=== PATIENT | male | born 1950 | race Caucasian/White ===

== ENCOUNTER 2017-05-25 07:29 | Day surgery (SDC) | payer MEDICARE, BC ==
[~2017-05-25 07:29] MED LIST: Dextrose 5%-0.45% NaCl 1,000 ML IV SCH; Midazolam 1 MG/ML 2 ML SDV IV ONE; Midazolam 1 MG/ML 2 ML SDV ONE; Sodium Chloride 0.9% 10 ML Syringe FLUSH PRN; fentaNYL 100 MCG/2 ML SDV IV ONE; fentaNYL 100 MCG/2 ML SDV ONE
[2017-05-25] MEDS ORDERED: fentaNYL 100 MCG/2 ML SDV IV ONE ×2 (08:26)
[2017-05-25] MEDS ORDERED: Midazolam 1 MG/ML 2 ML SDV IV ONE ×2 (08:27)
--- NOTE | 2017-05-25 09:14 | OR ---
DATE: 05/25/2017 PROCEDURE: Esophagogastroduodenoscopy and multiple pinch biopsies. INSTRUMENT USED: GIF-H180 Olympus video panendoscope. PREMEDICATIONS: No oral topical anesthesia used. Fentanyl 100 mcg intravenous, Versed 2 mg intravenous. Nasal O2 cannula. The procedure was done under pulse oximetry, BP recording, and threat monitoring analyst. INDICATION: The patient with long-standing heartburn, and recent high dysphagia unexplained, on long-term PPI. Esophagogastroduodenoscopy is performed for detection of any active erosive lesions, [place] esophagus and/or malignancy also under consideration, H. pylori status to be determined, esophageal dilatations if indicated, endoscopic hemostasis therapy if needed. DESCRIPTION OF PROCEDURE: The scope was passed with ease. Adequate visualization of the esophagus was made from proximal to distal areas. No upper esophageal lesions identified. No distal esophageal stricture. No uphill or downhill esophageal varices. No Nida-Blel tear. No evidence of erosive esophagitis by [place] criteria. No esophageal polyp or tumor mass identified. Z-line was seen at around 40 cm distal to the oral verge, configuration consistent with grade 1 by ZAP classification. No esophageal polyp or tumor mass identified. No proximal gastric varices noted. Gastric fundus examination by retroflexion showed no malignant lesions. No gastric ulcer, malignant mass, or vascular ectasia identified. Duodenal bulb showed no ulcer. Visualized second part of the duodenum was unremarkable. Multiple pinch biopsies were taken from the gastric antrum and proximal body and sent for PyloriTek test for H. pylori, and if negative in an hour, tissue is to be sent for histopathology. No bleeding was noted from any of the visualized areas at the completion of examination. IMPRESSION: Normal study. The patient tolerated the procedure well. [facility] /[id number]
[2017-05-25 10:33] VITALS: BP 141/72
== END 2017-05-25 10:40 | disposition home or self-care (01) ==
LOC: DL.ENDO 07:29
PROVIDERS: ATTEND Internal Medicine Gastroenterology
DX: K29.50 Unspecified chronic gastritis without bleeding (principal); K60.2 Anal fissure, unspecified; Z80.0 Family history of malignant neoplasm of digestive organs; K80.20 Calculus of gallbladder without cholecystitis without obstruction; N20.0 Calculus of kidney; E11.9 Type 2 diabetes mellitus without complications; I10 Essential (primary) hypertension; E66.09 Other obesity due to excess calories; K21.9 Gastro-esophageal reflux disease without esophagitis
CPT/HCPCS: 43239; 87077; J2250; J3010; J7042; 88305

== ENCOUNTER 2017-09-19 16:57 | Emergency (ER) | payer OTHER, MEDICARE, BC ==
[2017-09-19 17:25] VITALS: BP 156/73
[2017-09-19] MEDS ORDERED: Tetracaine HCl/PF 0.5% 4 ML Bottle EYEBOTH ONE (17:43)
[2017-09-19] MEDS ORDERED: Fluorescein 1 MG Ophth Strip EYEBOTH ONE (17:43)
--- NOTE | 2017-09-19 17:45 | EDM.PDOC ---
ED HPI GENERAL MEDICAL PROBLEM - General Chief Complaint: Eye Problems Stated Complaint: WORKERS COMP / SAND IN EYES Time Seen by Provider: 09/19/17 17:42 Source of Information: Reports: Patient History Limitations: Reports: No Limitations - History of Present Illness INITIAL COMMENTS - FREE TEXT/NARRATIVE: 67 yo male c/o sand in eyes bilat this 8:30 AM Onset: Today Onset Date: 09/19/17 Duration: Hour(s): Location: Reports: Face Quality: Reports: Burning Severity: Moderate Improves with: Reports: None Worsens with: Reports: None Context: Reports: Other (sand blown into eyes) Associated Symptoms: Reports: No Other Symptoms Bilateral Eye Pain Score (Numeric/FACES): 7 - Related Data Allergies Allergy/AdvReac Type Severity Reaction Status Date / Time No Known Allergies Allergy Verified 09/19/17 17:29 Home Meds: Home Meds Aspirin [Adult Low Dose Aspirin EC] 81 mg PO DAILY 02/08/15 [History] Multivitamin with Minerals [Multiple Vitamin] 1 tab PO DAILY 02/08/15 [History] Omeprazole 20 mg PO DAILY 02/08/15 [History] [place]-3/DHA/Epa/Fish Oil [[place]-3 Fish Oil 1,200 MG Sfgl] 1,200 mg PO TID [History] Albuterol Sulfate [Proair Hfa] 2 puff INH QID PRN 02/02/16 [History] Cyanocobalamin (Vitamin B-12) [B-12] 1,000 mcg PO BID 02/02/16 [History] DULoxetine HCl [Cymbalta] 30 mg PO BEDTIME 02/02/16 [History] Ibuprofen [Advil] 800 mg PO BID PRN 02/02/16 [History] Losartan [Cozaar] 100 mg PO DAILY 02/02/16 [History] Nitroglycerin [Nitrostat] 0.4 mg PO ASDIRECTED 02/02/16 [History] Propranolol [Inderal LA] 60 mg PO BID 02/02/16 [History] Simvastatin [Zocor] 20 mg PO BEDTIME 02/02/16 [History] glipiZIDE [Glipizide] 5 mg PO BIDAC 02/02/16 [History] metFORMIN [Glucophage] 1,000 mg PO BID 02/02/16 [History] Dibucaine [Nupercainal 1% Oint] 1 applic RECTAL QID MDD RECTAL PAIN 05/23/17 [ History] Docusate Sodium 1 cap PO BID PRN 05/23/17 [History] Gabapentin [Neurontin] 1 cap PO TID 05/23/17 [History] Melatonin Er 8 Mg 1 tab PO BEDTIME PRN 05/23/17 [History] Past Medical History HEENT History: Reports: Cataract, Hard of Hearing Cardiovascular History: Reports: High Cholesterol, Hypertension, [place], Stents Other Cardiovascular History: angioplasy Respiratory History: Reports: Bronchitis, Recurrent, Pneumonia, Recurrent, SOB Gastrointestinal History: Reports: Cholelithiasis, GERD, Other (See Below) Other Gastrointestinal History: HX OF ANAL FISSURE. HIGH RISK FAMILY HX OF COLON CA Genitourinary History: Reports: Acute Renal Failure, Other (See Below) Other Genitourinary History: ?BPH. HX OF NEPHROLITHIASIS Musculoskeletal History: Reports: Fibromyalgia, Other (See Below) Other Musculoskeletal History: SPINAL STENOSIS OF CERVICAL REGION. DEGENERATIVE DISC DISEASE. RADICULOPATHY OF CERVICAL SPINE Neurological History: Reports: Headaches, Chronic Psychiatric History: Reports: Anxiety, Depression Endocrine/Metabolic History: Reports: Diabetes, Type II, Obesity/BMI 30+ Hematologic History: Reports: Anemia, B12 Deficiency Immunologic History: Reports: None Oncologic (Cancer) History: Reports: None Dermatologic History: Reports: None - Infectious Disease History Infectious Disease History: Reports: Chicken Pox, Measles, Mumps - Past Surgical History Head Surgeries/Procedures: Reports: None HEENT Surgical History: Reports: Naso-Sinus Surgery Cardiovascular Surgical History: Reports: Coronary Artery Stent Respiratory Surgical History: Reports: None GI Surgical History: Reports: Colonoscopy, Colostomy, EGD, Hernia, Inguinal, Hernia Repair/Other Male Surgical History: Reports: None Endocrine Surgical History: Reports: None Neurological Surgical History: Reports: None Musculoskeletal Surgical History: Reports: Arthroscopic Knee, Carpal Tunnel, Other (See Below) Other Musculoskeletal Surgeries/Procedures:: jonny , 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 Dermatological Surgical History: Reports: None Social & Family History - Family History HEENT: Reports: Cataract Cardiac: Reports: Heart Failure Endocrine/Metabolic: Reports: Diabetes, type II Oncologic: Reports: Bladder, Lung, Renal - Tobacco Use Smoking Status *Q: Former Smoker Used Tobacco, but Quit: No - Caffeine Use Caffeine Use: Reports: Soda - Recreational Drug Use Recreational Drug Use: No ED ROS GENERAL - Review of Systems Review Of Systems: See Below Constitutional: Reports: No Symptoms HEENT: Reports: Eye Pain Respiratory: Reports: No Symptoms Cardiovascular: Reports: No Symptoms Endocrine: Reports: No Symptoms GI/Abdominal: Reports: No Symptoms : Reports: No Symptoms Musculoskeletal: Reports: No Symptoms Skin: Reports: No Symptoms Neurological: Reports: No Symptoms Psychiatric: Reports: No Symptoms Hematologic/Lymphatic: Reports: No Symptoms Immunologic: Reports: No Symptoms ED EXAM GENERAL W FULL EYE - Physical Exam Exam: See Below Exam Limited By: No Limitations General Appearance: Alert, No Apparent Distress Eye Exam: Bilateral Eye: Corneal Abrasion (left @ 12o'clock and right 3o'clock) , PERRL Eyelids: Bilateral: Normal Appearance Cornea Exam: Bilateral: Corneal Abrasion (left 12o'clock and right 3o'clock), Examined with Flourescein Extraocular Movements: Bilateral: Intact Pupils: Normal Accommodation Pupillary Size: Bilateral: 4 mm Pupillary Reaction: Bilateral: Brisk Anterior Chamber: Bilateral: Normal Appearance Posterior Chamber: Bilateral: Normal Funduscopic Ears: Normal External Exam Nose: Normal Inspection Throat/Mouth: Normal Inspection Head: Atraumatic Neck: Normal Inspection Respiratory/Chest: No Respiratory Distress Cardiovascular: Normal Peripheral Pulses GI/Abdominal: Normal Bowel Sounds Neurological: Alert, Oriented, CN II-XII Intact Psychiatric: Normal Affect Skin Exam: Warm, Dry ED EYE w/ Add Procedure - Eye Procedure Alcaine Drops Administered: Yes (bilat. eyes) Eye Irrigated w/ Saline (ccs): 10 (bilat. eyes) Antibiotic Oinment/Drps Admin: Both Eyes Course - Vital Signs Last Recorded V/S: Last Vital Signs Temp 36.4 C 09/19/17 17:24 Pulse 59 L 09/19/17 17:24 Resp 20 09/19/17 17:24 BP 156/73 H 09/19/17 17:24 Pulse Ox 97 09/19/17 17:24 - Orders/Labs/Meds Meds: Medications Discontinued Medications Generic Name Dose Route Start Last Admin Trade Name Freq PRN Reason Stop Dose Admin Balanced Salt Solution 10 ml 09/19/17 17:48 09/19/17 17:50 Eye Stream Eye Rinse EYEBOTH 09/19/17 17:49 10 ml ONETIME ONE Administration Balanced Salt Solution Confirm 09/19/17 17:49 Eye Stream Eye Rinse Administered 09/19/17 17:50 Dose 30 ml .ROUTE .STK-MED ONE Fluorescein Sodium 1 mg 09/19/17 17:43 09/19/17 17:50 Ful-Jinny EYEBOTH 09/19/17 17:44 1 mg ONETIME ONE Administration Tetracaine HCl 2 ml 09/19/17 17:43 09/19/17 17:47 Tetracaine 0.5% Steri-Unit Anneliese EYEBOTH 09/19/17 17:44 2 ml ASDIRECTED ONE Administration Departure - Departure Time of Disposition: 18:05 Disposition: Home, Self-Care 01 Condition: Good Clinical Impression: Corneal abrasion Qualifiers: Encounter type: initial encounter Laterality: unspecified laterality Qualified Code(s): S05.00XA - Injury of conjunctiva and corneal abrasion without foreign body, unspecified eye, initial encounter Eye foreign body Qualifiers: Encounter type: initial encounter Laterality: unspecified laterality Qualified Code(s): T15.90XA - Foreign body on external eye, part unspecified, unspecified eye, initial encounter - Discharge Information Instructions: Eye Foreign Body, [id number] Forms: ED Department Discharge Additional Instructions: wear eye protection Use GARAMYCIN OPTHAL SOLN. 2 DROPS EACH EYE QID F/U w/ PCP
[2017-09-19] MEDS ORDERED: Balanced Salt Solution Ophth Irrig 30 ML Bottle EYEBOTH ONE (17:48)
[2017-09-19] MEDS ORDERED: Balanced Salt Solution Ophth Irrig 30 ML Bottle ONE (17:49)
== END 2017-09-19 18:15 | disposition home or self-care (01) ==
LOC: DL.ED 16:57
DX: T15.02XA Foreign body in cornea, left eye, initial encounter (principal); T15.01XA Foreign body in cornea, right eye, initial encounter; I10 Essential (primary) hypertension; E78.00 Pure hypercholesterolemia, unspecified; K21.9 Gastro-esophageal reflux disease without esophagitis; F32.9 Major depressive disorder, single episode, unspecified; E11.9 Type 2 diabetes mellitus without complications; Z87.891 Personal history of nicotine dependence; Z79.82 Long term (current) use of aspirin; Z79.84 Long term (current) use of oral hypoglycemic drugs; Z79.899 Other long term (current) drug therapy; X58.XXXA Exposure to other specified factors, initial encounter
CPT/HCPCS: 99283; A9270

== ENCOUNTER 2017-10-31 12:24 | Observation (INO) | payer OTHER, MEDICARE, BC ==
[2017-10-31] MEDS ORDERED: HYDROmorphone 1 MG/ML Syringe IVPUSH ONE (12:52)
[2017-10-31] MEDS ORDERED: Ondansetron 4 MG/2 ML SDV ONE (12:57)
[2017-10-31] MEDS ORDERED: Ondansetron 4 MG/2 ML SDV IV ONE ×2 (12:58→14:45)
[2017-10-31] MEDS ORDERED: Iopamidol 612 MG/ML 100 ML Bottle IVPUSH ONE (13:09)
--- NOTE | 2017-10-31 13:32 | CT ---
Clinical history: 67-year-old male injured in a fall. Scan technique: Volume acquisition of data emergency unenhanced CT scan of the head and brain obtaine d with patient lying supine on the Siemens multi slice scanner [facility]. All data archived in the PACS system for storage and study (bone/brain windows). Interpretation: 1. Uniformly thick bony calvarium without sign of skull fracture, underlying brain contusion or epidu ral/subdural hematoma. 2. Symmetric clear pneumatization of the paranasal and mastoid sinuses (no basal skull fracture). 3. Symmetric street-white matter pattern and there appear to be tiny lacunar infarcts, respectively, ge nu of the internal capsule basal ganglia on the left and posteriorly internal capsule basal ganglia o n the right. No other signs of microvascular ischemic change. 4. No supratentorial or posterior fossa mass lesion. Midline pineal and symmetric choroid plexus calc ifications. 5. No sign of acute intracerebral/intraventricular/subarachnoid bleed. 6. Minimal age-appropriate atrophy. No hydrocephalus. CONCLUSION: Age-appropriate atrophy and microvascular ischemic changes. No sign of skull fracture or closed head injury.
--- NOTE | 2017-10-31 13:36 | CT ---
Clinical history: 67-year-old male injured in a fall. TECHNIQUE: Volume acquisition of data emergency unenhanced CT scan of the cervical spine obtained wit h patient lying supine on the Siemens multislice scanner [facility]. All data archived in the PACS system for storage, reformatting axial/sagittal/coronal planes and study. Interpretation: Chronic severe arthritic reactive changes atlantoaxial joint. Normal TMJs. No basal s kull fracture. Abnormal intervertebral disc space narrowing C5-6 level with associated hypertrophic marginal and unc inate spur formation (similar marginal spondylosis anteriorly C4 vertebral body). No sign of prevertebral soft tissue swelling, cervical fracture, spondylolisthesis or jumped locked f acets. (Dense calcification ligamentum nuchae posteriorly). Lung apices clear. No fractures medial ends of the clavicles. 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 No cervical fracture.
[2017-10-31 13:42] LABS: ANION GAP 13.4; CHLORIDE,CL 97 mmol/L (101-111); SODIUM,NA 132 mmol/L (135-145)
--- NOTE | 2017-10-31 14:17 | CT ---
CLINICAL HISTORY: 67-year-old hypertensive 200 pound diabetic male injured in fall (pain ribs on the right). SCAN TECHNIQUE: Volume acquisition of data from an emergency CT scan of the chest, abdomen and pelvis obtained without oral contrast but during/after the intravenous administration 100 cc nonionic Isovu e contrast (3 cc/s via injector) while the patient was lying supine on the Siemens multi slice scanne [place], [place]. All data archived in the PACS system for storage, reformatting. INTERPRETATION: 1. Signs of multilevel disc disease lower thoracic and mid/lower lumbar spine with hypertrophic luis m nal spondylosis. No sign of fracture or spondylolisthesis. No pathologic skeletal lesions. 2. Nondisplaced fractures of the posterior lateral eighth (8) and ninth (9) ribs, on the right. No si gn of pleural hematoma or underlying lung contusion. No atelectasis or dependent pleural effusion. No pneumothorax on the right. 3. Normal caliber thoracic and abdominal aorta. No traumatic dissection. Cardiac silhouette. No peric ardial effusion. 4. Solitary tiny dependent intraluminal gallstone. No abnormal dilatation of intra or extra hepatic b iliary ducts. 5. Single 3 cm diameter upper pole cortical cyst left kidney. No other renal cortical mass lesion. So litary stone lower pole calyx right kidney. No other evidence of nephrolithiasis or obstructive uropa thy. 6. No fractures of the pelvis or either hip. No abdominal visceral rupture or laceration. No ascites or free intraperitoneal air. No inflammatory "dirty" peritoneal fat, sign of mechanical bowel obstruc tion or mesenteric/retroperitoneal lymphadenopathy. 7. Liver, stomach, spleen, pancreas and adrenal glands unremarkable. CONCLUSION: Nondisplaced fractures right eighth and ninth ribs. Multilevel disc disease and chronic a rthritic changes of the spine. Simple cyst upper pole left kidney. Cholelithiasis.
[2017-10-31] MEDS ORDERED: Sodium Polystyrene Sulfonate 15 GM/60 ML Susp 60 ML Bot PO ONE (14:31)
[2017-10-31] MEDS ORDERED: Morphine 2 MG/ML Syringe IVPUSH ONE (14:44)
--- NOTE | 2017-10-31 15:52 | EDM.PDOC ---
ED HPI GENERAL MEDICAL PROBLEM - General Chief Complaint: Back Pain or Injury Stated Complaint: SLIPPED ON ICE, HIT HEAD AND BACK Time Seen by Provider: 10/31/17 12:45 Source of Information: Reports: Patient, Family History Limitations: Reports: No Limitations - History of Present Illness INITIAL COMMENTS - FREE TEXT/NARRATIVE: Patient presents to the ER with c/o slipping on the ice. He states he landed on his back and hit his head. He is unsure if he lost consciousness. He c/o right sided rib pain rating it a 10/10. He states he has a headache and a lump on the back of his head as well. Onset: Today, Sudden Location: Reports: Head, Chest, Abdomen Severity: Severe Improves with: Reports: None Worsens with: Reports: None Associated Symptoms: Reports: No Other Symptoms Right Posterior Chest Pain Score (Numeric/FACES): 10 Right Thoracic Pain Score (Numeric/FACES): 4 - Related Data Allergies Allergy/AdvReac Type Severity Reaction Status Date / Time No Known Allergies Allergy Verified 10/31/17 15:50 Home Meds: Home Meds Aspirin [Adult Low Dose Aspirin EC] 81 mg PO DAILY 02/08/15 [History] Multivitamin with Minerals [Multiple Vitamin] 1 tab PO DAILY 02/08/15 [History] [place]-3/DHA/Epa/Fish Oil [[place]-3 Fish Oil 1,200 MG Sfgl] 1,200 mg PO DAILY [History] Albuterol Sulfate [Proair Hfa] 2 puff INH Q6HR PRN 02/02/16 [History] Cyanocobalamin (Vitamin B-12) [B-12] 1,000 mcg PO BID 02/02/16 [History] DULoxetine HCl [Cymbalta] 60 mg PO DAILY 02/02/16 [History] Ibuprofen [Advil] 800 mg PO BID PRN 02/02/16 [History] Losartan [Cozaar] 100 mg PO DAILY 02/02/16 [History] Nitroglycerin [Nitrostat] 0.4 mg PO ASDIRECTED PRN 02/02/16 [History] Propranolol [Inderal LA] 60 mg PO BID 02/02/16 [History] Simvastatin [Zocor] 20 mg PO BEDTIME 02/02/16 [History] glipiZIDE [Glipizide] 10 mg PO BIDAC 02/02/16 [History] metFORMIN [Glucophage] 1,000 mg PO BID 02/02/16 [History] Docusate Sodium 1 cap PO BID PRN 05/23/17 [History] Gabapentin [Neurontin] 300 mg PO TID 05/23/17 [History] Melatonin Er 8 Mg 1 tab PO BEDTIME PRN 05/23/17 [History] Insulin Detemir [Levemir] 10 unit SUBCUT BEDTIME 10/31/17 [History] Magnesium 250 mg PO DAILY 10/31/17 [History] Omeprazole 20 mg PO DAILY 10/31/17 [History] Past Medical History HEENT History: Reports: Cataract, Hard of Hearing Cardiovascular History: Reports: High Cholesterol, Hypertension, [place], Stents Other Cardiovascular History: angioplasy Respiratory History: Reports: Bronchitis, Recurrent, Pneumonia, Recurrent, SOB Gastrointestinal History: Reports: Cholelithiasis, GERD, Other (See Below) Other Gastrointestinal History: HX OF ANAL FISSURE. HIGH RISK FAMILY HX OF COLON CA Genitourinary History: Reports: Acute Renal Failure, Other (See Below) Other Genitourinary History: ?BPH. HX OF NEPHROLITHIASIS Musculoskeletal History: Reports: Fibromyalgia, Other (See Below) Other Musculoskeletal History: SPINAL STENOSIS OF CERVICAL REGION. DEGENERATIVE DISC DISEASE. RADICULOPATHY OF CERVICAL SPINE Neurological History: Reports: Headaches, Chronic Psychiatric History: Reports: Anxiety, Depression Endocrine/Metabolic History: Reports: Diabetes, Type II, Obesity/BMI 30+ Hematologic History: Reports: Anemia, B12 Deficiency Immunologic History: Reports: None Oncologic (Cancer) History: Reports: None Dermatologic History: Reports: None - Infectious Disease History Infectious Disease History: Reports: Chicken Pox, Measles, Mumps, Rubella - Past Surgical History Head Surgeries/Procedures: Reports: None HEENT Surgical History: Reports: Naso-Sinus Surgery Other HEENT Surgeries/Procedures: hx broken nose requiring surgery Cardiovascular Surgical History: Reports: Coronary Artery Stent Respiratory Surgical History: Reports: None GI Surgical History: Reports: Colonoscopy, EGD, Hernia, Inguinal, Hernia Repair/ Other Male Surgical History: Reports: None Endocrine Surgical History: Reports: None Neurological Surgical History: Reports: None Musculoskeletal Surgical History: Reports: Arthroscopic Knee, Carpal Tunnel, Other (See Below) Other Musculoskeletal Surgeries/Procedures:: jonny , 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 ED EXAM, GENERAL - Physical Exam Exam: See Below Exam Limited By: No Limitations General Appearance: Alert, WD/WN, Moderate Distress Eye Exam: Bilateral Eye: EOMI, Normal Inspection, PERRL Ears: Normal External Exam, Normal Canal, Hearing Grossly Normal, Normal TMs Nose: Normal Inspection, Normal Mucosa, No Blood Throat/Mouth: Normal Inspection, Normal Teeth, Normal Gums, Normal Voice, No Airway Compromise Head: Normocephalic, Other (RIght upper occiput hematoma/contusion from fall) Neck: Normal Inspection, Non-Tender, Full Range of Motion Respiratory/Chest: Decreased Breath Sounds, Other (Severe pain with deep inspiration, decreased breath sounds). No: Chest Non-Tender Cardiovascular: Normal Peripheral Pulses, Regular Rate, Rhythm, No Edema, No Gallop, No JVD, No Murmur, No Rub Peripheral Pulses: 2+: Radial (L), Radial (R) GI/Abdominal: Normal Bowel Sounds, Soft, Tender (Male) Exam: Deferred Rectal (Males) Exam: Deferred Back Exam: Normal Inspection, CVA Tenderness (L), CVA Tenderness (R), Decreased Range of Motion Extremities: Normal Inspection, No Pedal Edema, Normal Capillary Refill, Limited Range of Motion Neurological: Alert, Oriented, CN II-XII Intact, Normal Cognition, Normal Gait, Normal Reflexes, No Motor/Sensory Deficits Psychiatric: Normal Affect, Normal Mood Skin Exam: Warm, Dry, Intact, Normal Color, No Rash Lymphatic: No Adenopathy Course - Vital Signs Last Recorded V/S: Last Vital Signs Temp 97.9 F 10/31/17 15:27 Pulse 57 L 10/31/17 15:27 Resp 20 10/31/17 15:27 BP 150/68 H 10/31/17 15:27 Pulse Ox 94 L 10/31/17 15:27 - Orders/Labs/Meds Orders: Active Orders 24 hr Category Date Time Status Incentive Spirometry [RT Incentive Spirometry] [RC] Care 10/31/17 14:31 Active ASDIRECTED Labs: Laboratory Tests 10/31/17 10/31/17 Range/Units 13:03 13:03 WBC 8.4 (5.0-10.0) 10^3/uL RBC 4.05 L (4.6-6.2) 10^6/uL Hgb 12.7 L (14.0-18.0) g/dL Hct 36.7 L (40.0-54.0) % MCV 90.6 D (80-100) fL MCH 31.4 (27.0-34.0) pg MCHC 34.6 (33.0-35.0) g/dL Plt Count 262 (150-450) 10^3/uL Neut % (Auto) 77.9 H (42.2-75.2) % Lymph % (Auto) 11.9 L (20.5-50.1) % [place] % (Auto) 6.9 (2-8) % Eos % (Auto) 2.7 (1.0-3.0) % Baso % (Auto) 0.6 (0.0-1.0) % Add Manual Diff Yes Neutrophils % (Manual) 79 H (42-75) % Lymphocytes % (Manual) 10 L (20-50) % Monocytes % (Manual) 9 H (2-8) % Eosinophils % (Manual) 2 (1-3) % Sodium 132 L (135-145) mmol/L Potassium 5.4 H D (3.6-5.0) mmol/L Chloride 97 L (101-111) mmol/L Carbon Dioxide 27.0 (21.0-31.0) mmol/L Anion Gap 13.4 BUN 22 H (7-18) mg/dL Creatinine 1.1 (0.6-1.3) mg/dL Est Cr Clr Drug Dosing 56.69 mL/min Estimated GFR (MDRD) > 60 BUN/Creatinine Ratio 20.00 Glucose 289 H (74-105) mg/dL Calcium 9.5 (8.4-10.2) mg/dl Total Bilirubin 0.3 (0.2-1.0) mg/dL AST 32 (10-42) IU/L ALT 32 (10-60) IU/L Alkaline Phosphatase 40 L (42-121) IU/L Total Protein 7.5 (6.7-8.2) g/dl Albumin 4.3 (3.2-5.5) g/dl Globulin 3.2 Albumin/Globulin Ratio 1.34 Meds: Medications Discontinued Medications Generic Name Dose Route Start Last Admin Trade Name Freq PRN Reason Stop Dose Admin Hydromorphone HCl 1 mg 10/31/17 12:52 10/31/17 13:03 Dilaudid IVPUSH 10/31/17 12:53 1 mg ONETIME ONE Administration Iopamidol 100 ml 10/31/17 13:09 10/31/17 13:09 Isovue-300 (61%) IVPUSH 10/31/17 13:10 100 ml ONETIME ONE Administration Morphine Sulfate 2 mg 10/31/17 14:44 10/31/17 14:53 Morphine IVPUSH 10/31/17 14:45 2 mg ONETIME ONE Administration Ondansetron HCl 4 mg 10/31/17 12:58 10/31/17 13:03 Zofran IV 10/31/17 12:59 4 mg ONETIME ONE Administration Ondansetron HCl Confirm 10/31/17 12:57 10/31/17 13:05 Zofran Administered 10/31/17 12:58 Not Given Dose 4 mg .ROUTE .STK-MED ONE Ondansetron HCl 4 mg 10/31/17 14:45 10/31/17 14:53 Zofran IV 10/31/17 14:46 4 mg ONETIME ONE Administration Sodium Polystyrene Sulfonate 15 gm 10/31/17 14:31 10/31/17 14:45 Kayexalate PO 10/31/17 14:32 15 gm ONETIME ONE Administration - Radiology Interpretation Free Text/Narrative:: Head CT: No acute findings C spine CT: No acute findings CHest/abdomen/pelvis CT: Fractured 8th and 9th ribs on the right, non-displaced See rad report Departure - Departure Time of Disposition: 15:04 Disposition: Admitted As Inpatient 66 Clinical Impression: Hyperkalemia Fall Qualifiers: Encounter type: initial encounter Qualified Code(s): W19.XXXA - Unspecified fall, initial encounter Rib fractures Qualifiers: Encounter type: initial encounter Rib fracture type: multiple ribs Fracture type: closed Laterality: right Qualified Code(s): S22.41XA - Multiple fractures of ribs, right side, initial encounter for closed fracture - Discharge Information - My Orders Last 24 Hours: My Active Orders 10/31/17 14:31 Incentive Spirometry [RT Incentive Spirometry] [RC] ASDIRECTED - Assessment/Plan Last 24 Hours: My Active Orders 10/31/17 14:31 Incentive Spirometry [RT Incentive Spirometry] [RC] ASDIRECTED
[2017-10-31] MEDS ORDERED: Nitroglycerin 0.4 MG Tab.SL SL PRN (17:11)
[2017-10-31] MEDS ORDERED: MELATONIN 8 MG PO PRN (17:11)
[2017-10-31] MEDS ORDERED: Albuterol 6.7 GM Inhaler INH PRN (17:11)
--- NOTE | 2017-10-31 17:27 | PCM.HP ---
H&P History of Present Illness - General Date of Service: 10/31/17 Admit Problem/Dx: Admission Diagnosis/Problem Admission Diagnosis/Problem Rib pain on right side Source of Information: Patient History Limitations: Reports: No Limitations - History of Present Illness Initial Comments - Free Text/Narative: Patient is a 67 y/o male with muliple comobid including DM-II, HTN, CAD s/p stent x 2, KATHERINE on CPAP. He presented to the ED following a fall. Patient reports he slide on ice this afternoon and fell landing on his back with occiput hitting the ground. He is unsure whether he loss consciousness. He denies any prodrom prior to fall. No chest pain, no dizziness. He sustained pain to the right chest. pain is 10/10, sharp, persistent. Abdomino/pelvic CT showed non-displaced fractures of right eitght and ninth ribs. Cervical CT was negative for fracture. Head CT was negative for skull fracture. He was evaluated by trauma team and pain contriolled advised. Onset of Symptoms: Reports: Today Improves with: Reports: None Worsens with: Reports: None Associated Symptoms: Reports: No Other Symptoms Right Posterior Chest Pain Score (Numeric/FACES): 10 Right Thoracic Pain Score (Numeric/FACES): 4 - Related Data Allergies/Adverse Reactions: Allergies Allergy/AdvReac Type Severity Reaction Status Date / Time No Known Allergies Allergy Verified 10/31/17 15:50 Home Medications: Home Meds Aspirin [Adult Low Dose Aspirin EC] 81 mg PO DAILY 02/08/15 [History] Multivitamin with Minerals [Multiple Vitamin] 1 tab PO DAILY 02/08/15 [History] [place]-3/DHA/Epa/Fish Oil [[place]-3 Fish Oil 1,200 MG Sfgl] 1,200 mg PO DAILY [History] Albuterol Sulfate [Proair Hfa] 2 puff INH Q6HR PRN 02/02/16 [History] Cyanocobalamin (Vitamin B-12) [B-12] 1,000 mcg PO BID 02/02/16 [History] DULoxetine HCl [Cymbalta] 60 mg PO DAILY 02/02/16 [History] Ibuprofen [Advil] 800 mg PO BID PRN 02/02/16 [History] Losartan [Cozaar] 100 mg PO DAILY 02/02/16 [History] Nitroglycerin [Nitrostat] 0.4 mg PO ASDIRECTED PRN 02/02/16 [History] Propranolol [Inderal LA] 60 mg PO BID 02/02/16 [History] Simvastatin [Zocor] 20 mg PO BEDTIME 02/02/16 [History] glipiZIDE [Glipizide] 10 mg PO BIDAC 02/02/16 [History] metFORMIN [Glucophage] 1,000 mg PO BID 02/02/16 [History] Docusate Sodium 1 cap PO BID PRN 05/23/17 [History] Gabapentin [Neurontin] 300 mg PO TID 05/23/17 [History] Melatonin Er 8 Mg 1 tab PO BEDTIME PRN 05/23/17 [History] Insulin Detemir [Levemir] 10 unit SUBCUT BEDTIME 10/31/17 [History] Magnesium 250 mg PO DAILY 10/31/17 [History] Omeprazole 20 mg PO DAILY 10/31/17 [History] Past Medical History HEENT History: Reports: Cataract, Hard of Hearing Cardiovascular History: Reports: High Cholesterol, Hypertension, CT, Stents Other Cardiovascular History: angioplasy Respiratory History: Reports: Bronchitis, Recurrent, Pneumonia, Recurrent, SOB Gastrointestinal History: Reports: Cholelithiasis, GERD, Other (See Below) Other Gastrointestinal History: HX OF ANAL FISSURE. HIGH RISK FAMILY HX OF COLON CA Genitourinary History: Reports: Acute Renal Failure, Other (See Below) Other Genitourinary History: ?BPH. HX OF NEPHROLITHIASIS Musculoskeletal History: Reports: Fibromyalgia, Other (See Below) Other Musculoskeletal History: SPINAL STENOSIS OF CERVICAL REGION. DEGENERATIVE DISC DISEASE. RADICULOPATHY OF CERVICAL SPINE Neurological History: Reports: Headaches, Chronic Psychiatric History: Reports: Anxiety, Depression Endocrine/Metabolic History: Reports: Diabetes, Type II, Obesity/BMI 30+ Hematologic History: Reports: Anemia, B12 Deficiency Immunologic History: Reports: None Oncologic (Cancer) History: Reports: None Dermatologic History: Reports: None - Infectious Disease History Infectious Disease History: Reports: Chicken Pox, Measles, Mumps, Rubella - Past Surgical History Head Surgeries/Procedures: Reports: None HEENT Surgical History: Reports: Naso-Sinus Surgery Other HEENT Surgeries/Procedures: hx broken nose requiring surgery Cardiovascular Surgical History: Reports: Coronary Artery Stent Respiratory Surgical History: Reports: None GI Surgical History: Reports: Colonoscopy, EGD, Hernia, Inguinal, Hernia Repair/ Other Male Surgical History: Reports: None Endocrine Surgical History: Reports: None Neurological Surgical History: Reports: None Musculoskeletal Surgical History: Reports: Arthroscopic Knee, Carpal Tunnel, Other (See Below) Other Musculoskeletal Surgeries/Procedures:: jonny , 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 Dermatological Surgical History: Reports: None Social & Family History - Family History HEENT: Reports: Cataract Cardiac: Reports: Heart Failure Endocrine/Metabolic: Reports: Diabetes, type II Oncologic: Reports: Bladder, Lung, Renal - Tobacco Use Smoking Status *Q: Never Smoker Used Tobacco, but Quit: No - Caffeine Use Caffeine Use: Reports: Tea - Recreational Drug Use Recreational Drug Use: No H&P Review of Systems - Review of Systems: Review Of Systems: See Below General: Reports: No Symptoms HEENT: Reports: No Symptoms Pulmonary: Reports: No Symptoms Cardiovascular: Reports: No Symptoms Gastrointestinal: Reports: No Symptoms Genitourinary: Reports: No Symptoms Musculoskeletal: Reports: Other (roght sided chest pain) Psychiatric: Reports: No Symptoms Neurological: Reports: No Symptoms Hematologic/Lymphatic: Reports: No Symptoms Immunologic: Reports: No Symptoms Exam - Exam Exam: See Below - Vital Signs Vital Signs: Last Vital Signs Temp 97.9 F 10/31/17 15:27 Pulse 57 L 10/31/17 15:27 Resp 20 10/31/17 15:27 BP 150/68 H 10/31/17 15:27 Pulse Ox 94 L 10/31/17 15:27 Weight: 197 lb - Exam General: Alert, Oriented, Cooperative, Moderate Distress HEENT: PERRLA, Hearing Intact, Mucosa Moist & [place], Nares Patent, Normal Nasal Septum, Posterior Pharynx Clear, Conjunctiva Clear, EOMI, EACs Clear, TMs Clear Neck: Supple, Trachea Midline, 2 Lungs: Clear to Auscultation, Normal Respiratory Effort Cardiovascular: Regular Rate, Regular Rhythm GI/Abdominal Exam: Normal Bowel Sounds, Soft, Non-Tender, No Organomegaly, No Distention, No Abnormal Bruit, No Mass, Pelvis Stable (Male) Exam: No Hernia, Normal Inspection, Normal Prostate, Circumcised Rectal (Males) Exam: Normal Exam, Normal Rectal Tone, Prostate Normal Back Exam: Normal Inspection, Full Range of Motion, NT Extremities: Normal Inspection, Normal Range of Motion, Non-Tender, No Pedal Edema, Normal Capillary Refill Skin: Warm, Dry, Intact Neurological: Cranial Nerves Intact, Reflexes Equal Bilateral Neuro Extensive - Mental Status: Alert, Oriented x3, Normal Mood/Affect, Normal Cognition, Memory Intact Neuro Extensive - Motor, Sensory, Reflexes: CN II-XII Intact, Normal Gait, Normal Reflexes Psychiatric: Alert, Normal Affect, Normal Mood - Patient Data Result Diagrams: 10/31/17 13:03 10/31/17 13:03 *Q Meaningful Use (ADM) - VTE *Q VTE Criteria *Q: - Stroke *Q Stroke Criteria *Q: - AMI *Q AMI Criteria *Q: - Problem List (1) Fall SNOMED Code(s): 8876990 ICD Code: W19.XXXA - UNSPECIFIED FALL, INITIAL ENCOUNTER Status: Acute Current Visit: Yes Qualifiers: Encounter type: initial encounter Qualified Code(s): W19.XXXA - Unspecified fall, initial encounter (2) Hyperkalemia SNOMED Code(s): 79188423 ICD Code: E87.5 - HYPERKALEMIA Status: Acute Current Visit: Yes (3) Traumatic closed fracture of rib of right side with minimal displacement with routine healing SNOMED Code(s): 58131656 ICD Code: S22.31XD - FRACTURE OF ONE RIB, RIGHT SIDE, SUBS FOR FX W ROUTN HEAL Status: Acute Current Visit: Yes (4) Rib fractures SNOMED Code(s): 22280392 ICD Code: S22.39XA - FRACTURE OF ONE RIB, UNSP SIDE, INIT FOR CLOS FX Status: Acute Current Visit: Yes Qualifiers: Encounter type: initial encounter Rib fracture type: multiple ribs Fracture type: closed Laterality: right Qualified Code(s): S22.41XA - Multiple fractures of ribs, right side, initial encounter for closed fracture Problem List Initiated/Reviewed/Updated: Yes Orders Last 24hrs: Active Orders 24 hr Category Date Time Status Patient Status [ADT] Routine ADT 10/31/17 17:04 Ordered Blood Glucose Check, Bedside [RC] QIDACANDBED Care 10/31/17 17:04 Ordered Oxygen Therapy [RC] PRN Care 10/31/17 17:04 Ordered VTE/DVT Education [RC] PER UNIT ROUTINE Care 10/31/17 17:04 Ordered Vital Signs [RC] Q4H Care 10/31/17 17:04 Ordered Consistent Carbohydrate Diet [DIET] Diet 10/31/17 Dinner Ordered Acetaminophen/HYDROcodone [[place] 325-10 MG] Med 10/31/17 17:04 Ordered 2 tab PO Q4H PRN Albuterol [Proventil HFA] Med 10/31/17 17:11 Ordered 2 puff INH Q6HR PRN Aspirin [Halfprin] Med 11/01/17 09:00 Ordered 81 mg PO DAILY Cyanocobalamin (Vitamin B-12) [B-12] Med 10/31/17 21:00 Ordered 1,000 mcg PO BID DULoxetine [Cymbalta] Med 11/01/17 09:00 Ordered 60 mg PO DAILY Gabapentin [Neurontin] Med 10/31/17 21:00 Ordered 300 mg PO TID Heparin Sodium Med 10/31/17 17:15 Ordered 5,000 units SUBCUT Q12H Insulin Detemir [Levemir] Med 10/31/17 21:00 Ordered 10 unit SUBCUT BEDTIME Losartan [Cozaar] Med 11/01/17 09:00 Ordered 100 mg PO DAILY Magnesium [Magnesium] Med 11/01/17 09:00 Ordered 250 mg PO DAILY Melatonin Er 8 Mg Med 10/31/17 17:11 Ordered 1 tab PO BEDTIME PRN Multivitamin with Minerals [Multiple Vitamin] Med 11/01/17 09:00 Ordered 1 tab PO DAILY Nitroglycerin [Nitrostat] Med 10/31/17 17:11 Ordered 0.4 mg SL ASDIRECTED PRN [place]-3/DHA/Epa/Fish Oil [[place]-3 Fish Oil 1,200 MG Med 11/01/17 09:00 Ordered Sfgl] 1,200 mg PO DAILY Omeprazole Med 11/01/17 09:00 Ordered 20 mg PO DAILY Propranolol [Inderal LA] Med 10/31/17 21:00 Ordered 60 mg PO BID Simvastatin [Zocor] Med 10/31/17 21:00 Ordered 20 mg PO BEDTIME Sodium Chloride 0.9% @ 125 MLS/HR (1000ml) Med 10/31/17 17:15 Ordered Sodium Chloride 0.9% [Normal Saline] 1,000 ml IV ASDIRECTED glipiZIDE [Glucotrol] Med 11/01/17 06:00 Ordered 10 mg PO BIDAC Resuscitation Status Routine Resus Stat 10/31/17 17:04 Ordered Assessment/Plan Comment:: # Non-displaced fractures of right eitght and ninth ribs due to fall -Adequate pain control with percocet -Fall precautions -monitor respiratory status -Incentive spectrometry #Hyperkalemia, K 5.4 -Received kayexalate -will repeat BMP #Reconcile all other home meds #Diabetic diet #Full code
[2017-10-31] MEDS: Acetaminophen/HYDROcodone 325-10 MG Tab PO PRN ×2 (17:43→21:43)
[2017-10-31] MEDS: Sodium Chloride 0.9% 1,000 ML IV SCH (17:45)
[2017-10-31] MEDS: Heparin Sodium 5,000 Units/ML Vial SUBCUT SCH (18:36)
[2017-10-31 18:40] LABS: ANION GAP 10.8; CHLORIDE,CL 97 mmol/L (101-111); SODIUM,NA 134 mmol/L (135-145)
[2017-10-31] MEDS ORDERED: CYANOCOBALAMIN 1000 MCG PO SCH (21:00)
[2017-10-31] MEDS ORDERED: Insulin Detemir 100 Units/ML 3 ML Pen SUBCUT SCH (21:00)
[2017-10-31] MEDS: Zolpidem 5 MG Tab PO PRN (21:43)
[2017-10-31] MEDS: Insulin Detemir 100 Units/ML 3 ML Pen SUBCUT SCH (21:44)
[2017-10-31] MEDS: PROPRANOLOL 60 MG PO SCH (21:46)
[2017-10-31] MEDS: Gabapentin 300 MG Cap*PT OWN MED PO SCH (21:47)
[2017-10-31] MEDS: SIMVASTATIN 20 MG PO SCH (21:47)
[2017-11-01] MEDS: Sodium Chloride 0.9% 1,000 ML IV SCH (01:51)
[2017-11-01] MEDS: Acetaminophen/HYDROcodone 325-10 MG Tab PO PRN ×4 (01:51→17:34)
[2017-11-01] MEDS: Heparin Sodium 5,000 Units/ML Vial SUBCUT SCH ×2 (05:16→17:29)
[2017-11-01] MEDS: GLIPIZIDE 10 MG PO SCH ×2 (05:17→17:16)
[2017-11-01] MEDS: Omeprazole 20 MG Cap.CR*PT OWN MED PO SCH (05:17)
[2017-11-01] MEDS ORDERED: Formoterol/Mometasone 200-5 MCG 8.8 GM Inhaler IH SCH (07:00)
[2017-11-01] MEDS: PROPRANOLOL 60 MG PO SCH ×2 (08:20→20:45)
[2017-11-01] MEDS: LOSARTAN 100 MG PO SCH (08:21)
[2017-11-01] MEDS: DULOXETINE 60 MG PO SCH (08:22)
[2017-11-01] MEDS: Gabapentin 300 MG Cap*PT OWN MED PO SCH ×3 (08:24→20:47)
[2017-11-01] MEDS: Multivitamins,Therapeutic Tab PO SCH (08:24)
[2017-11-01] MEDS ORDERED: Non-Formulary Medication 1 Each (Omega-3/Dha/Epa/Fish Oil [Omega-3 Fish Oil 1,200 Mg Sfgl] PO SCH (09:00)
--- NOTE | 2017-11-01 09:51 | PCM.PN ---
- General Info Date of Service: 11/01/17 Admission Dx/Problem (Free Text): Admission Diagnosis/Problem Admission Diagnosis/Problem Rib pain on right side Subjective Update: The patient was admitted after a fall. Noted to have right-sided refracture. Continues to have severe pain and mostly in the right side on the back Worse with movements. Better with pain medication. Present since the fall No associated increase in shortness of breath - Review of Systems General: Denies: Fever Gastrointestinal: Denies: Abdominal Pain - Patient Data Vitals - Most Recent: Last Vital Signs Temp 36.0 C 11/01/17 08:26 Pulse 64 11/01/17 08:26 Resp 20 11/01/17 08:26 BP 120/72 11/01/17 08:26 Pulse Ox 90 L 11/01/17 08:26 Weight - Most Recent: 89.358 kg I&O - Last 24 Hours: Intake & Output 10/31/17 11/01/17 11/01/17 22:59 06:59 14:59 Intake Total 240 Balance 240 Lab Results Last 24 Hours: Laboratory Results - last 24 hr 10/31/17 10/31/17 10/31/17 Range/Units 17:20 18:10 21:01 Sodium 134 L (135-145) mmol/L Potassium 4.8 (3.6-5.0) mmol/L Chloride 97 L (101-111) mmol/L Carbon Dioxide 31.0 (21.0-31.0) mmol/L Anion Gap 10.8 BUN 21 H (7-18) mg/dL Creatinine 1.0 (0.6-1.3) mg/dL Est Cr Clr Drug Dosing 62.35 mL/min Estimated GFR (MDRD) > 60 Glucose 149 H (74-105) mg/dL POC Glucose 135 H 195 H (70-105) mg/dl Calcium 9.2 (8.4-10.2) mg/dl 11/01/17 Range/Units 07:57 Sodium (135-145) mmol/L Potassium (3.6-5.0) mmol/L Chloride (101-111) mmol/L Carbon Dioxide (21.0-31.0) mmol/L Anion Gap BUN (7-18) mg/dL Creatinine (0.6-1.3) mg/dL Est Cr Clr Drug Dosing mL/min Estimated GFR (MDRD) Glucose (74-105) mg/dL POC Glucose 171 H (70-105) mg/dl Calcium (8.4-10.2) mg/dl Med Orders - Current: Current Medications Hydrocodone Bitart/Acetaminophen ([place] 325-10 Mg) 2 tab PO Q4H PRN PRN Reason: Pain (moderate 4-6) Last Admin: 11/01/17 05:16 Dose: 2 tab Albuterol (Proventil Hfa) 0 gm INH Q6HR PRN PRN Reason: Wheezing Aspirin (Halfprin) 81 mg PO DAILY [facility] Gabapentin (Neurontin) 300 mg PO TID [facility] Last Admin: 11/01/17 08:24 Dose: 300 mg Heparin Sodium (Porcine) (Heparin Sodium) 5,000 units SUBCUT Q12H [facility] Last Admin: 11/01/17 05:16 Dose: 5,000 units Sodium Chloride (Normal Saline) 1,000 mls @ 125 mls/hr IV ASDIRECTED [facility] Last Admin: 11/01/17 01:51 Dose: 125 mls/hr Insulin Detemir (Levemir) 14 unit SUBCUT BEDTIME [facility] Last Admin: 10/31/17 21:44 Dose: 14 units Lidocaine (Lidoderm 5%) 700 mg TOP DAILY [facility] Magnesium Oxide (Magnesium Oxide) 250 mg PO DAILY [facility] Last Admin: 11/01/17 08:34 Dose: 250 mg Mometasone Furoate/Formoterol Fumar (Dulera 200-5 Mcg) 2 puff IH BIDRT [facility] Multivitamins (Thera) 1 each PO DAILY [facility] Last Admin: 11/01/17 08:24 Dose: Not Given Nitroglycerin (Nitrostat) 0.4 mg SL ASDIRECTED PRN PRN Reason: Chest Pain Omeprazole (Omeprazole) 20 mg PO DAILY@0600 [facility] Last Admin: 11/01/17 05:17 Dose: 20 mg Duloxetine 60 Mg Cap (*Pt Own Med*) 1 each PO DAILY [facility] Last Admin: 11/01/17 08:22 Dose: 1 each Glipizide 10 Mg Tab* (Pt Own Med*) 1 each PO BIDAC [facility] Last Admin: 11/01/17 05:17 Dose: 1 each Losartan 100 Mg Tab* (Pt Own Med*) 1 each PO DAILY [facility] Last Admin: 11/01/17 08:21 Dose: 1 each Simvastatin 20 Mg (Tab* Pt Own Med*) 1 each PO BEDTIME [facility] Last Admin: 10/31/17 21:47 Dose: 1 each Propranolol HCl (Inderal La) 60 mg PO BID [facility] Last Admin: 11/01/17 08:20 Dose: 60 mg Zolpidem Tartrate (Ambien) 5 mg PO BEDTIME PRN PRN Reason: for sleep Last Admin: 10/31/17 21:43 Dose: 5 mg Discontinued Medications Hydromorphone HCl (Dilaudid) 1 mg IVPUSH ONETIME ONE Stop: 10/31/17 12:53 Last Admin: 10/31/17 13:03 Dose: 1 mg Insulin Detemir (Levemir) 10 unit SUBCUT BEDTIME [facility] Last Admin: 10/31/17 21:37 Dose: Not Given Iopamidol (Isovue-300 (61%)) 100 ml IVPUSH ONETIME ONE Stop: 10/31/17 13:10 Last Admin: 10/31/17 13:09 Dose: 100 ml Morphine Sulfate (Morphine) 2 mg IVPUSH ONETIME ONE Stop: 10/31/17 14:45 Last Admin: 10/31/17 14:53 Dose: 2 mg Non-Formulary Medication (Cyanocobalamin (Vitamin B-12) [B-12]) 1,000 mcg PO BID [facility] Non-Formulary Medication (Melatonin Er 8 Mg) 1 tab PO BEDTIME PRN PRN Reason: Insomnia Non-Formulary Medication ([place]-3/Dha/Epa/Fish Oil [[place]-3 Fish Oil 1,200 Mg Sfgl]) 1,200 mg PO DAILY [facility] Ondansetron HCl (Zofran) 4 mg IV ONETIME ONE Stop: 10/31/17 12:59 Last Admin: 10/31/17 13:03 Dose: 4 mg Ondansetron HCl (Zofran) Confirm Administered Dose 4 mg .ROUTE .STK-MED ONE Stop: 10/31/17 12:58 Last Admin: 10/31/17 13:05 Dose: Not Given Ondansetron HCl (Zofran) 4 mg IV ONETIME ONE Stop: 10/31/17 14:46 Last Admin: 10/31/17 14:53 Dose: 4 mg Sodium Polystyrene Sulfonate (Kayexalate) 15 gm PO ONETIME ONE Stop: 10/31/17 14:32 Last Admin: 10/31/17 14:45 Dose: 15 gm - Exam General: Alert, Oriented Neck: Supple Lungs: Clear to Auscultation, Normal Respiratory Effort Cardiovascular: Regular Rate, Regular Rhythm GI/Abdominal Exam: Normal Bowel Sounds, Soft, Non-Tender Extremities: No Pedal Edema - Problem List & Annotations (1) Fall SNOMED Code(s): 1634524 Code(s): W19.XXXA - UNSPECIFIED FALL, INITIAL ENCOUNTER Status: Acute Current Visit: Yes Qualifiers: Encounter type: initial encounter Qualified Code(s): W19.XXXA - Unspecified fall, initial encounter (2) Hyperkalemia SNOMED Code(s): 64828039 Code(s): E87.5 - HYPERKALEMIA Status: Acute Current Visit: Yes (3) Rib fractures SNOMED Code(s): 07455039 Code(s): S22.39XA - FRACTURE OF ONE RIB, UNSP SIDE, INIT FOR CLOS FX Status : Acute Current Visit: Yes Qualifiers: Encounter type: initial encounter Rib fracture type: multiple ribs Fracture type: closed Laterality: right Qualified Code(s): S22.41XA - Multiple fractures of ribs, right side, initial encounter for closed fracture - Problem List Review Problem List Initiated/Reviewed/Updated: Yes - My Orders Last 24 Hours: My Active Orders 10/31/17 20:32 Zolpidem [Ambien] 5 mg PO BEDTIME PRN 11/01/17 07:00 Mometasone/Formoterol [Dulera 200-5 MCG] 2 puff IH BIDRT 11/02/17 09:00 Lidocaine 5% [Lidoderm 5%] 700 mg TOP DAILY - Plan Plan:: # Non-displaced fractures of right eitght and ninth ribs due to fall The patient has a history of chronic pain, has been on Neurontin Pain control Start scheduled ibuprofen Use as needed Percocet Add Lidoderm patch -Fall precautions -monitor respiratory status -Incentive spectrometry #Hyperkalemia noted on admission -Received kayexalate Improved -will repeat BMP in the morning #Diabetes Treat with glyburide, Levemir Hold metformin Follow blood sugars use supplemental insulin as needed #COPD Continue inhalers #Full code
[2017-11-01] MEDS: Lidocaine 5% 700 MG Patch TOP SCH (10:24)
[2017-11-01] MEDS: BREO ELLIPTA INH SCH (13:17)
[2017-11-01] MEDS: Ibuprofen 600 MG Tab PO SCH ×2 (13:18→17:28)
[2017-11-01] MEDS: ASPIRIN 81 MG PO SCH (13:19)
[2017-11-01] MEDS: DOCUSATE SODIUM 100 MG PO PRN ×2 (13:19→20:45)
[2017-11-01] MEDS: SIMVASTATIN 20 MG PO SCH (20:46)
[2017-11-01] MEDS: Zolpidem 5 MG Tab PO PRN (20:51)
[2017-11-01] MEDS: Insulin Detemir 100 Units/ML 3 ML Pen SUBCUT SCH (21:18)
[2017-11-02] MEDS: Acetaminophen/HYDROcodone 325-10 MG Tab PO PRN ×2 (03:43→12:17)
[2017-11-02] MEDS: Omeprazole 20 MG Cap.CR*PT OWN MED PO SCH (05:17)
[2017-11-02] MEDS: Heparin Sodium 5,000 Units/ML Vial SUBCUT SCH (05:18)
[2017-11-02] MEDS: GLIPIZIDE 10 MG PO SCH (06:30)
[2017-11-02] MEDS: Ibuprofen 600 MG Tab PO SCH ×2 (08:18→12:16)
[2017-11-02] MEDS: Lidocaine 5% 700 MG Patch TOP SCH (08:20)
[2017-11-02] MEDS: DOCUSATE SODIUM 100 MG PO PRN (08:21)
[2017-11-02] MEDS: PROPRANOLOL 60 MG PO SCH (08:22)
[2017-11-02] MEDS: DULOXETINE 60 MG PO SCH (08:22)
[2017-11-02] MEDS: LOSARTAN 100 MG PO SCH (08:23)
[2017-11-02] MEDS: ASPIRIN 81 MG PO SCH (08:23)
[2017-11-02] MEDS: Gabapentin 300 MG Cap*PT OWN MED PO SCH ×3 (08:24→15:13)
[2017-11-02] MEDS: BREO ELLIPTA INH SCH (08:24)
[2017-11-02] MEDS: Multivitamins,Therapeutic Tab PO SCH (08:25)
[2017-11-02] MEDS ORDERED: MAGNESIUM 400 MG PO SCH (09:00)
--- NOTE | 2017-11-02 09:42 | PCM.DCSUM1 ---
Discharge Summary - Hospital Course Free Text/Narrative:: The patient was admitted after a fall # Non-displaced fractures of right eitght and ninth ribs due to fall The patient has a history of chronic pain, has been on Neurontin Pain control: use ibuprofen, norco, Lidoderm patch Incentive spectrometry #Hyperkalemia noted on admission -Received kayexalate resolved #Diabetes Treat with glyburide, Levemir resume metformin #COPD Continue inhalers - Discharge Data Discharge Date: 11/02/17 Discharge Disposition: Home, Self-Care 01 Condition: Good - Discharge Diagnosis/Problem(s) (1) Fall SNOMED Code(s): 5061211 ICD Code: W19.XXXA - UNSPECIFIED FALL, INITIAL ENCOUNTER Status: Acute Current Visit: Yes Qualifiers: Encounter type: initial encounter Qualified Code(s): W19.XXXA - Unspecified fall, initial encounter (2) Hyperkalemia SNOMED Code(s): 75120673 ICD Code: E87.5 - HYPERKALEMIA Status: Acute Current Visit: Yes (3) Rib fractures SNOMED Code(s): 88489708 ICD Code: S22.39XA - FRACTURE OF ONE RIB, UNSP SIDE, INIT FOR CLOS FX Status: Acute Current Visit: Yes Qualifiers: Encounter type: initial encounter Rib fracture type: multiple ribs Fracture type: closed Laterality: right Qualified Code(s): S22.41XA - Multiple fractures of ribs, right side, initial encounter for closed fracture - Patient Instructions Diet: Heart Healthy Diet Activity: As Tolerated - Discharge Plan Prescriptions/Med Rec: Acetaminophen/HYDROcodone [[place] 325-10 MG] 1 tab PO Q4H PRN 30 Days #32 tablet PRN Reason: Pain (Moderate 4-6) Lidocaine 5% [Lidoderm 5%] 700 mg TOP DAILY #6 patch Home Medications: Home Meds Aspirin [Adult Low Dose Aspirin EC] 81 mg PO DAILY 02/08/15 [History] Multivitamin with Minerals [Multiple Vitamin] 1 tab PO DAILY 02/08/15 [History] [place]-3/DHA/Epa/Fish Oil [[place]-3 Fish Oil 1,200 MG Sfgl] 1,200 mg PO DAILY [History] Albuterol Sulfate [Proair Hfa] 2 puff INH Q6HR PRN 02/02/16 [History] Cyanocobalamin (Vitamin B-12) [B-12] 1,000 mcg PO BID 02/02/16 [History] DULoxetine HCl [Cymbalta] 60 mg PO DAILY 02/02/16 [History] Ibuprofen [Advil] 800 mg PO BID PRN 02/02/16 [History] Losartan [Cozaar] 100 mg PO DAILY 02/02/16 [History] Nitroglycerin [Nitrostat] 0.4 mg PO ASDIRECTED PRN 02/02/16 [History] Propranolol [Inderal LA] 60 mg PO BID 02/02/16 [History] Simvastatin [Zocor] 20 mg PO BEDTIME 02/02/16 [History] glipiZIDE [Glipizide] 10 mg PO BIDAC 02/02/16 [History] metFORMIN [Glucophage] 1,000 mg PO BID 02/02/16 [History] Docusate Sodium 1 cap PO BID PRN 05/23/17 [History] Gabapentin [Neurontin] 300 mg PO TID 05/23/17 [History] Melatonin Er 8 Mg 1 tab PO BEDTIME PRN 05/23/17 [History] Fluticasone/Vilanterol [Breo Ellipta 200-25 MCG Inhalation Kit] 1 puff IH DAILY 10/31/17 [History] Insulin Detemir [Levemir] 14 unit SUBCUT BEDTIME 10/31/17 [History] Magnesium 400 mg PO BIDMEALS 10/31/17 [History] Omeprazole 20 mg PO DAILY 10/31/17 [History] Acetaminophen/HYDROcodone [[place] 325-10 MG] 1 tab PO Q4H PRN 30 Days #32 tablet 11/02/17 [Rx] Lidocaine 5% [Lidoderm 5%] 700 mg TOP DAILY #6 patch 11/02/17 [Rx] Patient Handouts: Rib Fracture Referrals: PCP,None [Primary Care Provider] - (dr. Owens in 3 days) - General Info Date of Service: 11/02/17 Functional Status: Reports: Pain Controlled, Ambulating - Review of Systems Pulmonary: Reports: Pleuritic Chest Pain. Denies: Cough Cardiovascular: Reports: Chest Pain Gastrointestinal: Denies: Abdominal Pain Psychiatric: Denies: Confusion - Patient Data Vitals - Most Recent: Last Vital Signs Temp 35.8 C 11/02/17 07:29 Pulse 61 11/02/17 07:29 Resp 20 11/02/17 07:29 BP 137/70 11/02/17 07:29 Pulse Ox 91 L 11/02/17 07:29 Weight - Most Recent: 89.358 kg I&O - Last 24 hours: Intake & Output 11/01/17 11/02/17 11/02/17 22:59 06:59 14:59 Intake Total 440 400 440 Balance 440 400 440 Lab Results - Last 24 hrs: Laboratory Results - last 24 hr 11/01/17 11/01/17 11/01/17 Range/Units 11:29 17:21 21:07 POC Glucose 179 H 240 H 211 H (70-105) mg/dl 11/02/17 Range/Units 06:29 POC Glucose 195 H (70-105) mg/dl Med Orders - Current: Current Medications Hydrocodone Bitart/Acetaminophen ([place] 325-10 Mg) 2 tab PO Q4H PRN PRN Reason: Pain (moderate 4-6) Last Admin: 11/02/17 03:43 Dose: 2 tab Albuterol (Proventil Hfa) 0 gm INH Q6HR PRN PRN Reason: Wheezing Aspirin (Halfprin) 81 mg PO DAILY [facility] Last Admin: 11/02/17 08:23 Dose: 81 mg Docusate Sodium (Colace) 100 mg PO BID PRN PRN Reason: Constipation Last Admin: 11/02/17 08:21 Dose: 100 mg Gabapentin (Neurontin) 300 mg PO TID [facility] Last Admin: 11/02/17 08:24 Dose: 300 mg Heparin Sodium (Porcine) (Heparin Sodium) 5,000 units SUBCUT Q12H [facility] Last Admin: 11/02/17 05:18 Dose: 5,000 units Ibuprofen (Motrin) 600 mg PO TIDMEALS [facility] Last Admin: 11/02/17 08:18 Dose: 600 mg Insulin Detemir (Levemir) 14 unit SUBCUT BEDTIME [facility] Last Admin: 11/01/17 21:18 Dose: 14 units Lidocaine (Lidoderm 5%) 700 mg TOP DAILY [facility] Last Admin: 11/02/17 08:20 Dose: 700 mg Miscellaneous Information (Remove Patch) 1 ea TRDERM BEDTIME [facility] Last Admin: 11/01/17 20:47 Dose: 1 ea Multivitamins (Thera) 1 each PO DAILY [facility] Last Admin: 11/02/17 08:25 Dose: Not Given Nitroglycerin (Nitrostat) 0.4 mg SL ASDIRECTED PRN PRN Reason: Chest Pain Omeprazole (Omeprazole) 20 mg PO DAILY@0600 [facility] Last Admin: 11/02/17 05:17 Dose: 20 mg Duloxetine 60 Mg Cap (*Pt Own Med*) 1 each PO DAILY [facility] Last Admin: 11/02/17 08:22 Dose: 1 each Glipizide 10 Mg Tab* (Pt Own Med*) 1 each PO BIDAC [facility] Last Admin: 11/02/17 06:30 Dose: 1 each Losartan 100 Mg Tab* (Pt Own Med*) 1 each PO DAILY [facility] Last Admin: 11/02/17 08:23 Dose: 1 each Simvastatin 20 Mg (Tab* Pt Own Med*) 1 each PO BEDTIME [facility] Last Admin: 11/01/17 20:46 Dose: 1 each Breo Ellipta 200mcg/25mcg Pt's Own Med 0 each INH DAILY [facility] Last Admin: 11/02/17 08:24 Dose: 1 each Magnesium 400 Mg Tab (Pt's Own Med) 0 each PO DAILY [facility] Last Admin: 11/02/17 08:22 Dose: 1 each Propranolol HCl (Inderal La) 60 mg PO BID [facility] Last Admin: 11/02/17 08:22 Dose: 60 mg Zolpidem Tartrate (Ambien) 5 mg PO BEDTIME PRN PRN Reason: for sleep Last Admin: 11/01/17 20:51 Dose: 5 mg Discontinued Medications Hydromorphone HCl (Dilaudid) 1 mg IVPUSH ONETIME ONE Stop: 10/31/17 12:53 Last Admin: 10/31/17 13:03 Dose: 1 mg Sodium Chloride (Normal Saline) 1,000 mls @ 125 mls/hr IV ASDIRECTED [facility] Last Infusion: 11/01/17 10:00 Dose: 125 mls/hr Insulin Detemir (Levemir) 10 unit SUBCUT BEDTIME [facility] Last Admin: 10/31/17 21:37 Dose: Not Given Iopamidol (Isovue-300 (61%)) 100 ml IVPUSH ONETIME ONE Stop: 10/31/17 13:10 Last Admin: 10/31/17 13:09 Dose: 100 ml Magnesium Oxide (Magnesium Oxide) 250 mg PO DAILY [facility] Last Admin: 11/01/17 08:34 Dose: 250 mg Mometasone Furoate/Formoterol Fumar (Dulera 200-5 Mcg) 2 puff IH BIDRT [facility] Last Admin: 11/01/17 11:39 Dose: Not Given Morphine Sulfate (Morphine) 2 mg IVPUSH ONETIME ONE Stop: 10/31/17 14:45 Last Admin: 10/31/17 14:53 Dose: 2 mg Non-Formulary Medication (Cyanocobalamin (Vitamin B-12) [B-12]) 1,000 mcg PO BID ROBER Non-Formulary Medication (Melatonin Er 8 Mg) 1 tab PO BEDTIME PRN PRN Reason: Insomnia Non-Formulary Medication ([place]-3/Dha/Epa/Fish Oil [[place]-3 Fish Oil 1,200 Mg Sfgl]) 1,200 mg PO DAILY [facility] Ondansetron HCl (Zofran) 4 mg IV ONETIME ONE Stop: 10/31/17 12:59 Last Admin: 10/31/17 13:03 Dose: 4 mg Ondansetron HCl (Zofran) Confirm Administered Dose 4 mg .ROUTE .STK-MED ONE Stop: 10/31/17 12:58 Last Admin: 10/31/17 13:05 Dose: Not Given Ondansetron HCl (Zofran) 4 mg IV ONETIME ONE Stop: 10/31/17 14:46 Last Admin: 10/31/17 14:53 Dose: 4 mg Sodium Polystyrene Sulfonate (Kayexalate) 15 gm PO ONETIME ONE Stop: 10/31/17 14:32 Last Admin: 10/31/17 14:45 Dose: 15 gm - Exam General: Reports: Alert, Oriented Neck: Reports: Supple Lungs: Reports: Clear to Auscultation, Normal Respiratory Effort GI/Abdominal Exam: Normal Bowel Sounds, Soft, Non-Tender Skin: Reports: Ecchymosis (r. side lower rib cage) Psy/Mental Status: Reports: Alert, Normal Affect, Normal Mood *Q Meaningful Use (DIS) - VTE *Q VTE Criteria *Q: - Stroke *Q Stroke Criteria *Q: - AMI *Q AMI Criteria *Q:
[2017-11-02 10:33] LABS: ANION GAP 13.3; CHLORIDE,CL 95 mmol/L (101-111); SODIUM,NA 133 mmol/L (135-145)
[2017-11-02 10:53] VITALS: BP 127/68
== END 2017-11-02 13:00 | disposition home or self-care (01) ==
LOC: DL.ED 12:24 → DL.MS 15:13 → UNDOADMOB 15:13 → DL.MS 17:04
PROVIDERS: ADMIT Student in an Organized Health Care Education/Training Program; ATTEND Student in an Organized Health Care Education/Training Program
DX: S22.41XA Multiple fractures of ribs, right side, initial encounter for closed fracture (principal); E78.5 Hyperlipidemia, unspecified; E11.9 Type 2 diabetes mellitus without complications; J44.9 Chronic obstructive pulmonary disease, unspecified; I25.10 Atherosclerotic heart disease of native coronary artery without angina pectoris; G47.33 Obstructive sleep apnea (adult) (pediatric); K21.9 Gastro-esophageal reflux disease without esophagitis; W00.2XXA Other fall from one level to another due to ice and snow, initial encounter; Y93.29 Activity, other involving ice and snow; Z99.89 Dependence on other enabling machines and devices; Z79.82 Long term (current) use of aspirin; Z79.84 Long term (current) use of oral hypoglycemic drugs; Z79.899 Other long term (current) drug therapy; E66.9 Obesity, unspecified; Z68.30 Body mass index [BMI] 30.0-30.9, adult
CPT/HCPCS: 36415; 70450; 71260; 72125; 74177; 80048; 80053; 82962; 85025; 96374; 96375; 96376; 99285; A9270; J1170; J1644; J1815; J2270; J2405; J7030; Q9967; 96361; 96372; G0378

== ENCOUNTER 2017-11-12 13:15 | Emergency (ER) | payer OTHER, MEDICARE, BC ==
[2017-11-12 14:45] VITALS: BP 129/65
[2017-11-12] MEDS ORDERED: HYDROmorphone 0.5 MG/0.5 ML Syringe IM ONE (15:10)
--- NOTE | 2017-11-12 15:24 | EDM.PDOC ---
ED HPI GENERAL MEDICAL PROBLEM - General Chief Complaint: General Stated Complaint: BROKEN RIBS, PAIN MEDS NOT WORKING LIKE THEY SHOUL Time Seen by Provider: 11/12/17 15:04 Source of Information: Reports: Patient History Limitations: Reports: No Limitations - History of Present Illness INITIAL COMMENTS - FREE TEXT/NARRATIVE: This 67 yo male patient reports to the ED with continued rib pain. The patient reports he fell about 2 weeks ago, broke 5 ribs and has been in pain since the fall. The patient reports he was given a script for hydrocodone ("ripped" up his stomach) and fentanyl (caused hallucinations). Now is on Tramadol and Tylenol which don't seem to be controlling his pain. The patient called his clinic provider, but was instructed to come to the ED. Onset: Gradual Duration: Week(s):, Constant Location: Reports: Chest Quality: Reports: Ache, Dull Severity: Severe Improves with: Reports: Rest Worsens with: Reports: Movement Context: Reports: Trauma Treatments PATIENT OBSERVER: Reports: Acetaminophen Right Chest Pain Score (Numeric/FACES): 6 - Related Data Allergies Allergy/AdvReac Type Severity Reaction Status Date / Time fentanyl Allergy Delusions Verified 11/12/17 14:32 hydrocodone Allergy Stomach Verified 11/12/17 14:32 Upset Home Meds: Home Meds Aspirin [Adult Low Dose Aspirin EC] 81 mg PO DAILY 02/08/15 [History] Multivitamin with Minerals [Multiple Vitamin] 1 tab PO DAILY 02/08/15 [History] [place]-3/DHA/Epa/Fish Oil [[place]-3 Fish Oil 1,200 MG Sfgl] 1,200 mg PO DAILY [History] Albuterol Sulfate [Proair Hfa] 2 puff INH Q6HR PRN 02/02/16 [History] Cyanocobalamin (Vitamin B-12) [B-12] 1,000 mcg PO BID 02/02/16 [History] DULoxetine HCl [Cymbalta] 60 mg PO DAILY 02/02/16 [History] Ibuprofen [Advil] 800 mg PO BID PRN 02/02/16 [History] Losartan [Cozaar] 100 mg PO DAILY 02/02/16 [History] Nitroglycerin [Nitrostat] 0.4 mg PO ASDIRECTED PRN 02/02/16 [History] Propranolol [Inderal LA] 60 mg PO BID 02/02/16 [History] Simvastatin [Zocor] 20 mg PO BEDTIME 02/02/16 [History] glipiZIDE [Glipizide] 10 mg PO BIDAC 02/02/16 [History] metFORMIN [Glucophage] 1,000 mg PO BID 02/02/16 [History] Docusate Sodium 1 cap PO BID PRN 05/23/17 [History] Gabapentin [Neurontin] 300 mg PO TID 05/23/17 [History] Melatonin Er 8 Mg 1 tab PO BEDTIME PRN 05/23/17 [History] Fluticasone/Vilanterol [Breo Ellipta 200-25 MCG Inhalation Kit] 1 puff IH DAILY 10/31/17 [History] Insulin Detemir [Levemir] 14 unit SUBCUT BEDTIME 10/31/17 [History] Magnesium 400 mg PO BIDMEALS 10/31/17 [History] Omeprazole 20 mg PO DAILY 10/31/17 [History] Acetaminophen [Tylenol Extra Strength] 1,000 mg PO Q6HR 11/12/17 [History] Lidocaine 5% [Lidoderm 5%] 1,400 mg TOP DAILY 11/12/17 [History] traMADol HCl [Tramadol HCl] 100 mg PO Q6HR 11/12/17 [History] Past Medical History HEENT History: Reports: Cataract, Hard of Hearing Cardiovascular History: Reports: High Cholesterol, Hypertension, [place], Stents Other Cardiovascular History: angioplasy Respiratory History: Reports: Bronchitis, Recurrent, Pneumonia, Recurrent, SOB Gastrointestinal History: Reports: Cholelithiasis, GERD, Other (See Below) Other Gastrointestinal History: HX OF ANAL FISSURE. HIGH RISK FAMILY HX OF COLON CA Genitourinary History: Reports: Acute Renal Failure, Other (See Below) Other Genitourinary History: ?BPH. HX OF NEPHROLITHIASIS Musculoskeletal History: Reports: Fibromyalgia, Other (See Below) Other Musculoskeletal History: SPINAL STENOSIS OF CERVICAL REGION. DEGENERATIVE DISC DISEASE. RADICULOPATHY OF CERVICAL SPINE Neurological History: Reports: Headaches, Chronic Psychiatric History: Reports: Anxiety, Depression Endocrine/Metabolic History: Reports: Diabetes, Type II, Obesity/BMI 30+ Hematologic History: Reports: Anemia, B12 Deficiency Immunologic History: Reports: None Oncologic (Cancer) History: Reports: None Dermatologic History: Reports: None - Infectious Disease History Infectious Disease History: Reports: Chicken Pox, Measles, Mumps, Rubella - Past Surgical History Head Surgeries/Procedures: Reports: None HEENT Surgical History: Reports: Naso-Sinus Surgery Other HEENT Surgeries/Procedures: hx broken nose requiring surgery Cardiovascular Surgical History: Reports: Coronary Artery Stent Respiratory Surgical History: Reports: None GI Surgical History: Reports: Colonoscopy, EGD, Hernia, Inguinal, Hernia Repair/ Other Male Surgical History: Reports: None Endocrine Surgical History: Reports: None Neurological Surgical History: Reports: None Musculoskeletal Surgical History: Reports: Arthroscopic Knee, Carpal Tunnel, Other (See Below) Other Musculoskeletal Surgeries/Procedures:: jonny , 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 ED EXAM, GENERAL - Physical Exam Exam: See Below Exam Limited By: No Limitations General Appearance: Alert, WD/WN, Moderate Distress Eye Exam: Bilateral Eye: EOMI, Normal Inspection, PERRL Ears: Normal External Exam, Normal Canal, Hearing Grossly Normal, Normal TMs Nose: Normal Inspection, Normal Mucosa, No Blood Throat/Mouth: Normal Inspection, Normal Lips, Normal Teeth, Normal Gums, Normal Oropharynx, Normal Voice, No Airway Compromise Head: Atraumatic, Normocephalic Neck: Normal Inspection, Supple, Non-Tender, Full Range of Motion Respiratory/Chest: No Respiratory Distress, Lungs Clear, Normal Breath Sounds, No Accessory Muscle Use, Other (Tenderness to the right ribs) Cardiovascular: Normal Peripheral Pulses, Regular Rate, Rhythm, No Edema, No Gallop, No JVD, No Murmur, No Rub GI/Abdominal: Normal Bowel Sounds, Soft, Non-Tender, No Organomegaly, No Distention, No Abnormal Bruit, No Mass (Male) Exam: Deferred Rectal (Males) Exam: Deferred Back Exam: Normal Inspection, Full Range of Motion, NT Extremities: Normal Inspection, Normal Range of Motion, Non-Tender, Normal Capillary Refill, No Pedal Edema Neurological: Alert, Oriented, CN II-XII Intact, Normal Cognition, Normal Gait, Normal Reflexes, No Motor/Sensory Deficits Psychiatric: Normal Affect, Normal Mood Skin Exam: Warm, Dry, Intact, Normal Color, No Rash Lymphatic: No Adenopathy Course - Vital Signs Last Recorded V/S: Last Vital Signs Temp 36.3 C 11/12/17 14:40 Pulse 59 L 11/12/17 14:40 Resp 12 11/12/17 14:40 BP 129/65 11/12/17 14:40 Pulse Ox 99 11/12/17 14:40 - Orders/Labs/Meds Orders: Active Orders 24 hr Category Date Time Status HYDROmorphone [Dilaudid] Med 11/12/17 15:10 Once 0.5 mg IM ONETIME ONE Medication Orders Hydromorphone HCl (Dilaudid) 0.5 mg IM ONETIME ONE Stop: 11/12/17 15:11 Meds: Medications Generic Name Dose Route Start Last Admin Trade Name Junior PRN Reason Stop Dose Admin Hydromorphone HCl 0.5 mg 11/12/17 15:10 Dilaudid IM 11/12/17 15:11 ONETIME ONE Departure - Departure Time of Disposition: 15:23 Disposition: Home, Self-Care 01 Condition: Fair Clinical Impression: Right rib fracture Qualifiers: Encounter type: subsequent encounter Rib fracture type: multiple ribs Fracture type: closed Fracture healing: with routine healing Qualified Code(s): S22.41XD - Multiple fractures of ribs, right side, subsequent encounter for fracture with routine healing - Discharge Information Instructions: Rib Fracture, [id number] Care Plan Goals: The patient was advised of the examination results during the visit. The patient was given an injection of Dilaudid (0.5 mg) while in the ED. The patient was encouraged to continue to take the medications as prescribed. If the patient has breakthrough pain, the patient was encouraged to take 1 hydrocodone. If the patient has any additional symptoms or further concerns, the patient should visit his primary care facility or return to the emergency department. - My Orders Last 24 Hours: My Active Orders 11/12/17 15:10 HYDROmorphone [Dilaudid] 0.5 mg IM ONETIME ONE - Assessment/Plan Last 24 Hours: My Active Orders 11/12/17 15:10 HYDROmorphone [Dilaudid] 0.5 mg IM ONETIME ONE
== END 2017-11-12 15:44 | disposition home or self-care (01) ==
LOC: DL.ED 13:15
DX: S22.41XD Multiple fractures of ribs, right side, subsequent encounter for fracture with routine healing (principal); I10 Essential (primary) hypertension; E78.00 Pure hypercholesterolemia, unspecified; K21.9 Gastro-esophageal reflux disease without esophagitis; F32.9 Major depressive disorder, single episode, unspecified; E11.9 Type 2 diabetes mellitus without complications; Z79.4 Long term (current) use of insulin; Z79.82 Long term (current) use of aspirin; Z79.899 Other long term (current) drug therapy; Z88.5 Allergy status to narcotic agent; W19.XXXD Unspecified fall, subsequent encounter
CPT/HCPCS: 96372; 99283; J1170

== ENCOUNTER 2022-04-28 16:57 | Emergency (ER) | payer MEDICARE, BC ==
[2022-04-28] MEDS ORDERED: Sodium Chloride 0.9% 10 ML Syringe FLUSH PRN (17:48)
[2022-04-28 17:49] VITALS: BP 185/90; PULSE 72
[2022-04-28] MEDS ORDERED: HYDROmorphone 0.5 MG/0.5 ML Syringe IVPUSH ONE ×2 (18:16→20:20)
[2022-04-28] MEDS ORDERED: Ondansetron 4 MG/2 ML SDV IVPUSH ONE (18:16)
[2022-04-28 18:41] LABS: ANION GAP 16.3 mEq/L (7-13); CHLORIDE,CL 97 mmol/L (98-107); SODIUM,NA 136 mmol/L (136-145)
[2022-04-28 18:44] LABS: ESTIMATED GFR 68 mL/min (>=60)
[2022-04-28] MEDS ORDERED: Iopamidol 612 MG/ML 100 ML Bottle IVPUSH ONE (18:46)
== END 2022-04-28 21:32 | disposition home or self-care (01) ==
LOC: DL.ED 16:57
DX: M54.16 Radiculopathy, lumbar region (principal); K21.9 Gastro-esophageal reflux disease without esophagitis; E78.00 Pure hypercholesterolemia, unspecified; I10 Essential (primary) hypertension; I25.2 Old myocardial infarction; E11.9 Type 2 diabetes mellitus without complications; E66.9 Obesity, unspecified; Z68.36 Body mass index [BMI] 36.0-36.9, adult; Z88.6 Allergy status to analgesic agent; Z79.899 Other long term (current) drug therapy; Z79.82 Long term (current) use of aspirin; Z79.84 Long term (current) use of oral hypoglycemic drugs; Z79.4 Long term (current) use of insulin; Z20.822 Contact with and (suspected) exposure to COVID-19
CPT/HCPCS: 36415; 74177; 80053; 81001; 83605; 83690; 85025; 86140; 96374; 96375; 96376; 99284; J1170; J2405; J3490; Q9967; U0002

== ENCOUNTER 2023-12-17 19:21 | Inpatient (IN) | payer MEDICARE, BC ==
[2023-12-17 19:58] LABS: BASOPHILS PERCENT AUTO 1.1 % (0.0-1.0); EOSINOPHILS PERCENT AUTO 6.6 % (1.0-3.0); HEMOGLOBIN 12.6 g/dL (14.0-18.0); LYMPHOCYTES PERCENT AUTO 20.1 % (20.5-50.1); MEAN CORPUSCULAR HEMOGLOBIN 31.8 pg (27.0-34.0); MEAN CORPUSCULAR HGB CONC 34.1 g/dL (33.0-35.0); MEAN CORPUSCULAR VOLUME 93.4 fL (80-100); MONOCYTES PERCENT AUTO 16.1 % (2-8); NEUTROPHILS PERCENT AUTO 56.1 % (42.2-75.2); PLATELET COUNT,PLT 253 10^3/uL (150-450); RED BLOOD CELL COUNT 3.96 10^6/uL (4.6-6.2); WHITE BLOOD CELL COUNT,WBC 5.3 10^3/uL (5.0-10.0)
[2023-12-17 20:18] LABS: A/G RATIO 1.3; ALBUMIN 3.9 g/dL (3.4-5.0); ANION GAP 14.2 mEq/L (7-13); BILIRUBIN TOTAL 0.2 mg/dL (0.2-1.0); BUN/CREATININE RATIO 12.6 (No establ ref range); CALCIUM 8.9 mg/dL (8.5-10.1); CREATININE 1.27 mg/dL (0.70-1.30); EST CRCL DRUG DOSING (CG) 45.06 mL/min; POTASSIUM,K 4.2 mmol/L (3.5-5.1); PROTEIN TOTAL,TP 6.9 g/dL (6.4-8.2)
[2023-12-17] MEDS: Sodium Chloride 0.9% 10 ML Syringe FLUSH PRN (20:22)
[2023-12-17 20:25] LABS: PTT,PARTIAL THROMBOPLSTIN TIME 24.7 SEC (22.0-34.0)
[2023-12-17] MEDS: Iopamidol 755 Mg/ML 100 ML Bottle IVPUSH ONE (21:01)
[2023-12-17] MEDS ORDERED: 50% Dextrose in Water 50 ML Syringe IVPUSH PRN (22:04)
[2023-12-17] MEDS ORDERED: Glucagon,Human Recombinant 1 MG Vial IM PRN (22:04)
[2023-12-17] MEDS: Enoxaparin 100 MG/1 ML Syringe SUBCUT ONE (22:30)
[2023-12-17] MEDS: Insulin Glarg,Human.Rec.Analog 100 Unit/ML 10 ML Vial SUBCUT ONE (22:30)
[2023-12-18] MEDS: Melatonin 3 MG Tab PO PRN (02:21)
[2023-12-18] MEDS ORDERED: Simethicone 80 MG Tab.Chew PO PRN (04:43)
[2023-12-18] MEDS ORDERED: Acetaminophen 500 MG Tab PO PRN (04:43)
[2023-12-18] MEDS ORDERED: Albuterol 6.7 GM Inhaler INH PRN (04:43)
[2023-12-18] MEDS ORDERED: Sennosides/Docusate Sodium 50-8.6 MG Tab PO PRN (04:59)
[2023-12-18] MEDS ORDERED: Ondansetron 4 MG/2 ML SDV IVPUSH PRN (04:59)
[2023-12-18] MEDS ORDERED: Acetaminophen/HYDROcodone 325-5 MG Tab PO PRN (04:59)
[2023-12-18] MEDS ORDERED: glipiZIDE 5 MG Tab PO SCH (06:00)
[2023-12-18] MEDS: Lidocaine 5% 700 MG Patch TOP SCH (08:29)
[2023-12-18] MEDS: Metoprolol Succinate 25 MG Tab.ER PO SCH (08:33)
[2023-12-18] MEDS: Apixaban 5 MG Tab PO SCH (08:34)
[2023-12-18] MEDS: Losartan 50 MG Tab PO SCH (08:34)
[2023-12-18] MEDS: amLODIPine 5 MG Tab PO SCH (08:34)
[2023-12-18] MEDS: Isosorbide Mononitrate 30 MG Tab.ER PO SCH (08:35)
[2023-12-18] MEDS: Omeprazole 20 MG Cap.CR PO SCH (08:35)
[2023-12-18] MEDS: metFORMIN 500 MG Tab PO SCH (08:35)
[2023-12-18] MEDS: Docusate Sodium 100 MG Cap PO SCH (08:35)
[2023-12-18] MEDS: Citalopram 20 MG Tab PO SCH (08:35)
[2023-12-18] MEDS: Aspirin 81 MG Tab.EC PO SCH (08:36)
[2023-12-18] MEDS: Cyanocobalamin (Vitamin B12) 1,000 MCG Tab PO SCH (08:36)
[2023-12-18] MEDS: Primidone 50 MG Tab PO SCH (08:36)
[2023-12-18] MEDS ORDERED: Famotidine 20 MG Tab PO SCH (09:00)
[2023-12-18] MEDS ORDERED: Apixaban 5 MG Tab PO SCH (09:00)
[2023-12-18] MEDS: Gabapentin 300 MG Cap PO SCH (09:41)
[2023-12-18 12:06] VITALS: BP 145/76; PULSE 65
[2023-12-18] MEDS ORDERED: Simvastatin 40 MG Tab PO SCH (21:00)
[2023-12-18] MEDS ORDERED: Insulin Glarg,Human.Rec.Analog 100 Unit/ML 10 ML Vial SUBCUT SCH (21:00)
[2023-12-25] MEDS ORDERED: Apixaban 5 MG Tab PO SCH (08:00)
== END 2023-12-18 12:03 | disposition home or self-care (01) | DRG 176 ==
LOC: DL.ED 19:21 → DL.MS 22:09 → DL.ED 22:13
PROVIDERS: ADMIT Internal Medicine; ATTEND Internal Medicine
DX: R09.02 Hypoxemia (principal); I26.94 Multiple subsegmental thrombotic pulmonary emboli without acute cor pulmonale; E11.42 Type 2 diabetes mellitus with diabetic polyneuropathy; G47.33 Obstructive sleep apnea (adult) (pediatric); Z66 Do not resuscitate; E66.9 Obesity, unspecified; I25.10 Atherosclerotic heart disease of native coronary artery without angina pectoris; E11.9 Type 2 diabetes mellitus without complications; E78.00 Pure hypercholesterolemia, unspecified; I10 Essential (primary) hypertension; K21.9 Gastro-esophageal reflux disease without esophagitis; F41.9 Anxiety disorder, unspecified; Z68.36 Body mass index [BMI] 36.0-36.9, adult; F32.A Depression, unspecified; M19.90 Unspecified osteoarthritis, unspecified site; M54.9 Dorsalgia, unspecified; G89.29 Other chronic pain; D64.9 Anemia, unspecified; Z95.5 Presence of coronary angioplasty implant and graft; Z88.5 Allergy status to narcotic agent; Z88.8 Allergy status to other drugs, medicaments and biological substances; Z79.82 Long term (current) use of aspirin; Z79.51 Long term (current) use of inhaled steroids; Z79.84 Long term (current) use of oral hypoglycemic drugs; Z79.899 Other long term (current) drug therapy; I25.2 Old myocardial infarction; Z68.39 Body mass index [BMI] 39.0-39.9, adult; Z98.49 Cataract extraction status, unspecified eye; Z98.890 Other specified postprocedural states; Z95.0 Presence of cardiac pacemaker
CPT/HCPCS: 36415; 71275; 80053; 83880; 84484; 85025; 85610; 85730; 93005; Q9967; 82947; 99285; A9270-GY; J1650; J1815-GY; J3490

== ENCOUNTER 2024-01-23 18:02 | Emergency (ER) | payer MEDICARE, BC ==
[2024-01-23 18:17] VITALS: BP 146/88; PULSE 76
[2024-01-23] MEDS: Ketorolac 30 MG/ML SDV IM ONE (18:26)
== END 2024-01-23 19:23 | disposition home or self-care (01) ==
LOC: DL.ED 18:02
DX: S29.9XXA Unspecified injury of thorax, initial encounter (principal); M25.511 Pain in right shoulder; I10 Essential (primary) hypertension; E78.00 Pure hypercholesterolemia, unspecified; K21.9 Gastro-esophageal reflux disease without esophagitis; E11.9 Type 2 diabetes mellitus without complications; Z79.899 Other long term (current) drug therapy; Z79.84 Long term (current) use of oral hypoglycemic drugs; Z79.82 Long term (current) use of aspirin; Z88.5 Allergy status to narcotic agent
CPT/HCPCS: 71101; 73030; 96372; 99283; J1885

== ENCOUNTER 2025-08-26 08:17 | Emergency (ER) | payer MEDICARE, BC ==
[2025-08-26 08:50] LABS: BASOPHILS PERCENT AUTO 0.3 % (0.0-1.0); EOSINOPHILS PERCENT AUTO 1.1 % (1.0-3.0); LYMPHOCYTES PERCENT AUTO 8.0 % (20.5-50.1); MONOCYTES PERCENT AUTO 8.1 % (2-8); NEUTROPHILS PERCENT AUTO 82.5 % (42.2-75.2); PLATELET COUNT,PLT 274 10^3/uL (150-450); RED BLOOD CELL COUNT 4.84 10^6/uL (4.6-6.2); WHITE BLOOD CELL COUNT,WBC 13.1 10^3/uL (5.0-10.0)
[2025-08-26 09:01] LABS: A/G RATIO 1.1; ALANINE AMINOTRANSFERASE,ALT 31.0 U/L (16-63); ASPARTATE AMNIOTRANSFERASE,AST 18.0 U/L (15-37); BILIRUBIN DIRECT 0.1 mg/dL (0.0-0.2); BILIRUBIN INDIRECT 0.4; BILIRUBIN TOTAL 0.5 mg/dL (0.2-1.0); BLOOD UREA NITROGEN,BUN 30.0 mg/dL (7-18); CARBON DIOXIDE,CO2 32.0 mmol/L (21-32); CHLORIDE,CL 94.0 mmol/L (98-107); CREATININE 1.9 mg/dL (0.70-1.30); EST CRCL DRUG DOSING (CG) 29.22 mL/min; GLUCOSE RANDOM 207.0 mg/dL (70-99); POTASSIUM,K 3.7 mmol/L (3.5-5.1); PROTEIN TOTAL,TP 7.5 g/dL (6.4-8.2); SODIUM,NA 137.0 mmol/L (136-145)
[2025-08-26 09:04] LABS: INR 5.1 (0.9-1.2)
[2025-08-26 09:05] LABS: ESTIMATED GFR 36.0 mL/min (>=60)
[2025-08-26 09:19] LABS: APPEARANCE,URINE CLEAR (CLEAR); GLUCOSE,URINE 500 (NEGATIVE); OCCULT BLOOD,URINE TRACE-INTACT (NEGATIVE)
[2025-08-26 09:28] LABS: EPITHELIAL CELLS,URINE RARE /HPF (NOT SEEN)
[2025-08-26] MEDS: Ondansetron 4 MG/2 ML SDV IVPUSH ONE (09:36)
[2025-08-26] MEDS: Ampicillin/Sulbactam Na 3 GM in Sodium Chloride 0.9% 100 ML IV ONE (11:24)
[2025-08-26 11:54] VITALS: BP 115/75; PULSE 85
== END 2025-08-26 12:03 ==
LOC: DL.ED 08:17
DX: K37 Unspecified appendicitis (principal); D68.9 Coagulation defect, unspecified; I10 Essential (primary) hypertension; E78.00 Pure hypercholesterolemia, unspecified; I25.2 Old myocardial infarction; K21.9 Gastro-esophageal reflux disease without esophagitis; E11.9 Type 2 diabetes mellitus without complications; E66.9 Obesity, unspecified; Z88.5 Allergy status to narcotic agent; Z79.4 Long term (current) use of insulin; Z79.01 Long term (current) use of anticoagulants; Z79.899 Other long term (current) drug therapy; Z68.34 Body mass index [BMI] 34.0-34.9, adult
CPT/HCPCS: 36415; 71045; 74176; 80048; 80076; 81001; 82150; 83690; 85025; 85379; 85610; 94762; 96365; 96368; 96375; 96376; 99285; 99291; J0295; J2405; J3430; J1171